=== PATIENT | female | born 1970 | race Caucasian/White ===

== ENCOUNTER 2018-08-22 13:08 | Inpatient (IN) | payer OTHER ==
[~2018-08-22] VITALS: Ht 134.6 cm; Wt 41.7 kg
[2018-08-22] VITALS (9 sets, daily range): BP systolic 99–120
[2018-08-22] MEDS ORDERED: NACL 0.9% 1,000 ML IV ONE (13:15)
[2018-08-22] MEDS ORDERED: ONDANSETRON HCL 4 MG/2 ML VIAL IVP ONE (13:30)
[2018-08-22 13:50] LABS: RED BLOOD CELL COUNT(AUTO) 1.65 MIL/uL (4.2-6.2); WHITE BLOOD COUNT (AUTO) 6.3 K/uL (4.8-10.8)
[2018-08-22 13:52] LABS: HEMATOCRIT 15.6 % (36-48); HEMOGLOBIN 5.1 g/dL (12.0-16.0); LYMPHOCYTES % (AUTO) 14.3 % (20.5-51.5); MEAN CORPUSCULAR HEMOGLOBIN 31 pg (27-31); MEAN CORPUSCULAR HGB CONC 32 % (32-36); MEAN CORPUSCULAR VOLUME 94 fL (79.0-98.0); NEUTROPHILS % (AUTO) 81.9 % (40.0-70.0); PLATELET COUNT (AUTO) 137 K/uL (130-430); RED CELL DISTRIBUTION WIDTH 15.8 % (9.0-15.0)
[2018-08-22 13:53] LABS: BASOPHILS % (AUTO) 0.3 % (0.0-2.0); EOSINOPHILS % (AUTO) 0.1 % (0.0-4.0); LYMPHOCYTES # (AUTO) 0.9 K/uL (1.0-5.5); MONOCYTES # (AUTO) 0.2 K/uL (0.0-1.0); MONOCYTES % (AUTO) 3.4 % (1.7-9.3); NEUTROPHILS # (AUTO) 5.2 K/uL (1.8-7.7)
[2018-08-22 13:56] LABS: INR 3.3 (0.8-1.2)
[2018-08-22 13:57] LABS: PROTHROMBIN TIME 32.4 SECS (9.5-12.5)
[2018-08-22 14:06] LABS: CALCIUM 7.7 mg/dL (8.4-11.0); CREATININE 0.86 mg/dL (0.55-1.30)
[2018-08-22 14:15] LABS: TOTAL BILIRUBIN 0.1 mg/dL (0.0-1.0)
[2018-08-22 14:16] LABS: BILIRUBIN,URINE NEGATIVE (NEGATIVE); BLOOD, URINE 1+ (NEGATIVE); CLARITY/URINE CLEAR (CLEAR); COLOR,URINE YELLOW (YELLOW); GLUCOSE,URINE NEGATIVE (NEGATIVE); KETONES,URINE NEGATIVE (NEGATIVE); LEUKOCYTE ESTERASE ,URINE NEGATIVE (NEGATIVE); NITRITE, URINE NEGATIVE (NEGATIVE); PH,URINE 6.5 (5.0-8.0); PROTEIN URINE 2+ (NEGATIVE); UROBILINOGEN,URINE 0.2 (0.2-1.0)
[2018-08-22 14:31] LABS: BARBITURATE, URINE NEGATIVE (NEG <=200)
[2018-08-22 14:32] LABS: BENZODIAZEPINE, URINE NEGATIVE (NEG <=150); CANNABINOID, URINE NEGATIVE (NEG <=50); COCAINE, URINE NEGATIVE (NEG <=150); METHAMPHETAMINES SCREEN,URINE NEGATIVE (NEG <=500); OPIATE, URINE NEGATIVE (NEG <=100); PHENCYCLIDINE SCREEN,URINE NEGATIVE (NEG <=25); UR TRICYCLIC ANTIDEPRESSANTS NEGATIVE (NEG <=300); URINE AMPHETAMINE NEGATIVE (NEG <=500); URINE METHADONE NEGATIVE (NEG <=200); URINE OXYCODONE SCREEN NEGATIVE (NEG <=100); URINE PROPOXYPHENE SCREEN NEGATIVE (NEG <=300)
[2018-08-22 14:43] LABS: BACTERIA,URINE FEW /HPF (None Seen); MUCUS,URINE None Seen /LPF (None Seen); RBC,URINE 0-3 /HPF (0-3); WBC,URINE 0-3 /HPF (0-3)
[2018-08-22] MEDS ORDERED: PANTOPRAZOLE SODIUM 40 MG/VIAL (PROTONIX) IVP ONE (16:30)
[2018-08-22 17:17] LABS: HEMATOCRIT 16.1 % (36-48); HEMOGLOBIN 5.4 g/dL (12.0-16.0)
[2018-08-22] MEDS ORDERED: WARF2.5T82 PO (18:29)
[2018-08-22] MEDS ORDERED: METO25TA6 PO (18:29)
[2018-08-22] MEDS ORDERED: FURO-150 PO (18:29)
[2018-08-22] MEDS ORDERED: POTA10TA15 PO (18:29)
[2018-08-22] MEDS ORDERED: FERR140T PO (18:29)
[2018-08-22] MEDS ORDERED: SODI650T PO (18:29)
[2018-08-22] MEDS ORDERED: [UNRECOGNIZED DRUG - OTHER] PO (18:29)
[2018-08-22] MEDS ORDERED: LOSA25TA3 PO (18:29)
[2018-08-22] MEDS ORDERED: CEL250 PO (18:29)
[2018-08-22] MEDS ORDERED: HYDR-4272 PO (18:29)
[2018-08-22] MEDS ORDERED: TRAZ300T11 PO (18:29)
[2018-08-22] MEDS ORDERED: MULT-1100 PO (18:29)
[2018-08-22] MEDS ORDERED: VITA0.4T18 PO (18:29)
[2018-08-22] MEDS ORDERED: DOCU-144 PO (18:29)
[2018-08-22] MEDS ORDERED: ASPI-1153 PO (18:29)
[2018-08-22] MEDS ORDERED: VITA1CAP PO (18:29)
[2018-08-22] MEDS ORDERED: CHOL500037 PO (18:29)
[2018-08-22] MEDS: NACL 0.9% 1,000 ML IV SCH (19:37)
[2018-08-22] MEDS ORDERED: PANTOPRAZOLE SODIUM 40 MG/VIAL (PROTONIX) IVP SCH (21:00)
[2018-08-22] MEDS ORDERED: PANTOPRAZOLE SODIUM 40 MG/VIAL (PROTONIX) ONE (23:01)
[2018-08-22] MEDS: PANTOPRAZOLE SODIUM 40 MG in NS 50 ML IV SCH (23:17)
[2018-08-22] MEDS: LORazepam 2 MG/ML VIAL IVP PRN (23:17)
[2018-08-22] MEDS ORDERED: PHYTONADIONE 10 MG/ML AMP IV ONE (23:30)
[2018-08-22] MEDS ORDERED: PHYTONADIONE 5 MG TABLET PO ONE (23:30)
[2018-08-22] MEDS ORDERED: PHYTONADIONE 10 MG/ML AMP ONE (23:44)
[2018-08-23] VITALS (20 sets, daily range): BP systolic 96–192
[2018-08-23] MEDS ORDERED: PHYTONADIONE 5 MG in NS 50 ML IV ONE ×2
[2018-08-23 00:14] LABS: HEMATOCRIT 22.4 % (36-48); HEMOGLOBIN 7.9 g/dL (12.0-16.0)
[2018-08-23] MEDS: LORazepam 2 MG/ML VIAL IVP PRN ×3 (03:28→20:23)
[2018-08-23] MEDS: PANTOPRAZOLE SODIUM 40 MG in NS 50 ML IV SCH ×5 (03:37→22:32)
[2018-08-23] MEDS ORDERED: PANTOPRAZOLE SODIUM 40 MG/VIAL (PROTONIX) ONE (03:40)
[2018-08-23] MEDS ORDERED: SIMETHICONE 40 MG/0.6 ML ML ONE (06:45)
[2018-08-23] MEDS ORDERED: BENZOCAINE 20% 0.5mL UD SPRAY MM ONE (06:45)
[2018-08-23 06:58] LABS: INR 1.5 (0.8-1.2); PROTHROMBIN TIME 15.5 SECS (9.5-12.5)
[2018-08-23 07:10] LABS: BASOPHILS % (AUTO) 0.1 % (0.0-2.0); EOSINOPHILS # (AUTO) 0.1 K/uL (0.0-0.4); EOSINOPHILS % (AUTO) 0.8 % (0.0-4.0); HEMATOCRIT 26.1 % (36-48); HEMOGLOBIN 8.7 g/dL (12.0-16.0); LYMPHOCYTES # (AUTO) 1.2 K/uL (1.0-5.5); LYMPHOCYTES % (AUTO) 13.5 % (20.5-51.5); MEAN CORPUSCULAR HEMOGLOBIN 30 pg (27-31); MEAN CORPUSCULAR HGB CONC 34 % (32-36); MEAN CORPUSCULAR VOLUME 91 fL (79.0-98.0); MONOCYTES # (AUTO) 0.6 K/uL (0.0-1.0); MONOCYTES % (AUTO) 6.7 % (1.7-9.3); NEUTROPHILS # (AUTO) 7.3 K/uL (1.8-7.7); PLATELET COUNT (AUTO) 77 K/uL (130-430); RED BLOOD CELL COUNT(AUTO) 2.88 MIL/uL (4.2-6.2); RED CELL DISTRIBUTION WIDTH 14.8 % (9.0-15.0); WHITE BLOOD COUNT (AUTO) 9.2 K/uL (4.8-10.8)
[2018-08-23] MEDS ORDERED: EPINEPHrine JECT 1 MG/10 ML SYR ONE (07:40)
[2018-08-23] MEDS: MIDAZOLAM HCL 5 MG/5 ML VIAL ONE ×4 (07:44→08:02)
[2018-08-23] MEDS: fentaNYL CITRATE/PF 100 MCG/2 ML AMP ONE ×2 (07:44→07:46)
[2018-08-23] MEDS: NACL 0.9% 1,000 ML IV SCH ×2 (08:53→20:22)
[2018-08-23 10:46] LABS: NEUTROPHILS % (AUTO) 78.9 % (40.0-70.0)
[2018-08-23 12:19] LABS: HEMATOCRIT 24.7 % (36-48); HEMOGLOBIN 8.3 g/dL (12.0-16.0)
[2018-08-23 16:36] LABS: HEMATOCRIT 24.6 % (36-48); HEMOGLOBIN 8.4 g/dL (12.0-16.0)
[2018-08-23 22:33] LABS: HEMATOCRIT 22.2 % (36-48); HEMOGLOBIN 7.6 g/dL (12.0-16.0)
[2018-08-24] VITALS: BP_SYST 125
[2018-08-24] MEDS: LORazepam 2 MG/ML VIAL IVP PRN ×3 (00:20→21:08)
[2018-08-24] MEDS: NACL 0.9% 1,000 ML IV SCH ×4 (01:42→23:50)
[2018-08-24] MEDS: PANTOPRAZOLE SODIUM 40 MG in NS 50 ML IV SCH ×4 (04:12→20:58)
[2018-08-24 05:18] LABS: HEMOGLOBIN 7.2 g/dL (12.0-16.0)
[2018-08-24 05:35] LABS: HEMATOCRIT 21.7 % (36-48)
[2018-08-24 08:18] VITALS: BP_SYST 134
[2018-08-24 09:12] LABS: CALCIUM 7.4 mg/dL (8.4-11.0); CREATININE 0.79 mg/dL (0.55-1.30); POTASSIUM 3.9 mmol/L (3.5-5.1)
[2018-08-24 09:17] LABS: INR 1.1 (0.8-1.2); PROTHROMBIN TIME 10.8 SECS (9.5-12.5); TOTAL BILIRUBIN 0.2 mg/dL (0.0-1.0)
[2018-08-24 09:21] LABS: HEMATOCRIT 24.1 % (36-48); HEMOGLOBIN 8.2 g/dL (12.0-16.0); MEAN CORPUSCULAR HEMOGLOBIN 31 pg (27-31); MEAN CORPUSCULAR HGB CONC 34 % (32-36); MEAN CORPUSCULAR VOLUME 90 fL (79.0-98.0); PLATELET COUNT (AUTO) 73 K/uL (130-430); RED BLOOD CELL COUNT(AUTO) 2.67 MIL/uL (4.2-6.2); RED CELL DISTRIBUTION WIDTH 15.6 % (9.0-15.0)
[2018-08-24 09:24] LABS: WHITE BLOOD COUNT (AUTO) 4.7 K/uL (4.8-10.8)
[2018-08-24 10:50] LABS: ATYPICAL LYMPHOCYTES % 0 % (0-0); BAND % (MANUAL) 2 % (0-6); BASOPHILS % (MANUAL) 0 % (0-2); EOSINOPHILS % (MANUAL) 3 % (0-7); LYMPHOCYTES % (MANUAL) 24 % (20-46); MONOCYTES % (MANUAL) 5 % (0-11)
[2018-08-24 12:19] VITALS: BP_SYST 152
[2018-08-24 14:48] LABS: HEMOGLOBIN 7.7 g/dL (12.0-16.0)
[2018-08-24 15:01] LABS: HEMATOCRIT 21.8 % (36-48)
[2018-08-24 16:00] VITALS: BP_SYST 139
[2018-08-24 20:00] VITALS: BP_SYST 131
[2018-08-24 20:19] LABS: HEMATOCRIT 34.5 % (36-48); HEMOGLOBIN 11.8 g/dL (12.0-16.0)
[2018-08-25 00:35] VITALS: BP_SYST 155
[2018-08-25] MEDS: PANTOPRAZOLE SODIUM 40 MG in NS 50 ML IV SCH ×3 (01:18→12:01)
[2018-08-25] MEDS: LORazepam 2 MG/ML VIAL IVP PRN (01:23)
[2018-08-25 02:35] LABS: HEMATOCRIT 30.2 % (36-48); HEMOGLOBIN 10.3 g/dL (12.0-16.0)
[2018-08-25] MEDS: NACL 0.9% 1,000 ML IV SCH ×2 (06:09→12:01)
[2018-08-25 08:55] VITALS: BP_SYST 155
[2018-08-25 12:02] VITALS: BP_SYST 153
[2018-08-25 15:05] VITALS: BP_SYST 153
== END 2018-08-25 16:55 | disposition short-term general hospital (02) | DRG 378 ==
LOC: SED 13:08 → SIC 14:49 → STU 08-23 19:53
PROVIDERS: ADMIT Internal Medicine Hospice and Palliative Medicine; ATTEND Internal Medicine Hospice and Palliative Medicine
PROC: 30233L1 Transfusion of Nonautologous Fresh Plasma into Peripheral Vein, Percutaneous Approach (ICD-10-PCS; 2018-08-23)
PROC: 30233N1 Transfusion of Nonautologous Red Blood Cells into Peripheral Vein, Percutaneous Approach (ICD-10-PCS; 2018-08-23)
PROC: 30233K1 Transfusion of Nonautologous Frozen Plasma into Peripheral Vein, Percutaneous Approach (ICD-10-PCS; 2018-08-23)
PROC: 3E0G8GC Introduction of Other Therapeutic Substance into Upper GI, Via Natural or Artificial Opening Endoscopic (ICD-10-PCS; principal; 2018-08-23 07:30)
DX: K28.4 Chronic or unspecified gastrojejunal ulcer with hemorrhage (principal); D68.9 Coagulation defect, unspecified; D62 Acute posthemorrhagic anemia; D50.0 Iron deficiency anemia secondary to blood loss (chronic); I35.1 Nonrheumatic aortic (valve) insufficiency; L93.0 Discoid lupus erythematosus; I48.91 Unspecified atrial fibrillation; K21.9 Gastro-esophageal reflux disease without esophagitis; T45.515A Adverse effect of anticoagulants, initial encounter; Z79.01 Long term (current) use of anticoagulants; Z83.3 Family history of diabetes mellitus; Z87.11 Personal history of peptic ulcer disease; Z95.2 Presence of prosthetic heart valve; Z98.84 Bariatric surgery status; Y92.89 Other specified places as the place of occurrence of the external cause; Z79.899 Other long term (current) drug therapy; Z79.82 Long term (current) use of aspirin
CPT/HCPCS: 36415; 70450-TC; 71045; 80053; 80307; 81000-TC; 82962; 84484; 85007; 85018-TC; 85025; 85027; 85610-TC; 86886; 86900; 86901; 86920; 87081; 93005; 96361; 96374; 99291; C9113; G0378; J0171; J2060; J2250; J2405; J3010; J3430; J7030; J7050; P9021; P9059

== ENCOUNTER 2021-07-09 16:52 | Emergency (ER) | payer OTHER ==
[~2021-07-09] VITALS: Ht 137.2 cm; Wt 56.7 kg
[2021-07-09 16:52] VITALS: BP_SYST 169
[~2021-07-09 16:52] MED LIST: ASPI-1393 PO; CEL250 PO; CHOL500037 PO; DOCU-144 PO; FERR140T2 PO; FURO-150 PO; HYDR-4272 PO; LOSA25TA3 PO; METO25TA6 PO; MULT-1100 PO; POTA10TA15 PO; SODI650T PO; TRAZ300T11 PO; VITA0.4T18 PO; VITA1CAP PO; [UNRECOGNIZED DRUG - OTHER] PO
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
--- NOTE | 2021-07-09 17:45 | NUR ---
ER Dr. Foster at bedside examining patient.
--- NOTE | 2021-07-09 19:00 | NUR ---
Care of patient endorsed to MADAN Lanier. Pt currently resting in bed, no acute distress noted.
[2021-07-09] MEDS ORDERED: OXYCODONE/ACETAMINOPHEN 5-325 TABLET PO ONE (19:45)
--- NOTE | 2021-07-09 21:12 | NUR ---
VSS no s/s of acute distress Resting on gurney
[2021-07-09] MEDS ORDERED: LIDO1ADH5 TP ×2 (21:29→21:31)
[2021-07-09 21:45] VITALS: BP_SYST 148
--- NOTE | 2021-07-09 21:45 | NUR ---
Patient given written and verbal discharge instructions and verbalizes understanding. ER MD discussed with patient the results and treatment provided. Patient in stable condition. ID arm band removed. Rx of Lidopatch given. Patient educated on pain management and to follow up with PMD. Pain Scale 0/10 Opportunity for questions provided and answered. Medication side effect fact sheet provided.
== END 2021-07-09 21:45 | disposition home or self-care (01) ==
LOC: SED 16:52
DX: S93.402A Sprain of unspecified ligament of left ankle, initial encounter (principal); S20.211A Contusion of right front wall of thorax, initial encounter; I10 Essential (primary) hypertension; K21.9 Gastro-esophageal reflux disease without esophagitis; Z88.0 Allergy status to penicillin; Z88.6 Allergy status to analgesic agent; Z79.899 Other long term (current) drug therapy; V49.49XA Driver injured in collision with other motor vehicles in traffic accident, initial encounter; Y93.89 Activity, other specified; Y92.89 Other specified places as the place of occurrence of the external cause; Y99.8 Other external cause status
CPT/HCPCS: 71100; 76376; 99284